=== PATIENT | male | born 1985 | race Asian ===

== ENCOUNTER 2024-08-24 06:01 | Emergency (ER) | payer BC, SELFPAY ==
[2024-08-24 06:03] VITALS: BMI 24.2
--- NOTE | 2024-08-24 06:05 | EKG_ITS ---
[facility] Test Date: 2024-08-24 Pat Name: CORAZON POON Department: Room: - Gender: Male [employer]ist: : 1985 Requested By: ED Temporary Provider Order Number: [id number] Reading MD: ED Temporary Provider Measurements Intervals [place] Rate: 51 P: 74 GA: 172 QRS: 66 QRSD: 88 T: 66 QT: 379 QTc: 352 Interpretive Statements SINUS BRADYCARDIA EARLY REPOLARIZATION [ST ELEVATION WITH NORMALLY INFLECTED T-WAVE] No previous ECG available for comparison /[id number]
[2024-08-24 06:14] VITALS: BP 142/86; PULSE 66; RESP 18; TEMP 36.6; O2SAT 96
--- NOTE | 2024-08-24 06:15 | XR_ITS ---
Examination: PA lateral chest 2 views Technique: Upright PA lateral chest 2 views Exam date:: August 24, 2024 0621 hrs. Indications: Chest pain today Findings: Normal heart size Lungs are clear Thoracic dextroscoliosis Impression: No active disease
--- NOTE | 2024-08-24 06:29 | EDNOTE_ITS ---
ED Chest Pain RME/HPI General Chief Complaint: Chest Pain Stated Complaint: CHEST PAIN Time Seen by Provider: 08/24/24 06:08 Source: patient Arrival date/time: 08/24/24 06:01 38-year-old male with no known medical history presents to the emergency room with a chief complaint of 8 out of 10 sternal chest pain x 2 hours. Mode of arrival: ambulatory Limitations: no limitations Review of Systems Review of Systems Systems Reviewed: All systems reviewed, normal except as documented Constitutional Constitutional: Reports system reviewed and no additional complaints, except as documented, Denies fatigue, Denies fever(s), Denies headache(s) and Denies weakness Eyes Eyes: Reports system reviewed and no additional complaints, except as documented, Denies blurry vision and Denies change in vision ENT Ears, Nose, Mouth, and Throat: Reports system reviewed and no additional complaints, except as documented, Denies otalgia, Denies headache(s), Denies nasal congestion, Denies throat swelling and Denies vertigo Cardiovascular Cardiovascular: Reports system reviewed and no additional complaints, except as documented, Reports chest pain, Reports chest pain at rest, Reports chest pain with activity, Reports dyspnea and Denies dyspnea on exertion Respiratory Respiratory: Reports system reviewed and no additional complaints, except as documented, Denies chest congestion, Denies cough, Reports dyspnea, Denies dyspnea on exertion and Denies wheezing Gastrointestinal Gastrointestinal: Reports system reviewed and no additional complaints, except as documented, Denies abdominal pain, Denies cramping, Denies nausea and Denies vomiting Genitourinary Genitourinary: Reports system reviewed and no additional complaints, except as documented, Denies dysuria and Denies hematuria Musculoskeletal Musculoskeletal: Reports system reviewed and no additional complaints, except as documented and Denies back pain Integumentary/Breasts Skin/Breast: Reports system reviewed and no additional complaints, except as documented and Denies wounds Neurologic Neurologic: Reports system reviewed and no additional complaints, except as documented, Denies confusion, Denies headache(s), Denies lack of coordination, Denies vertigo and Denies weakness Psychiatric Psychiatric: Reports system reviewed and no additional complaints, except as documented, Denies anxiety, Denies confusion, Denies depression, Denies paranoia, Denies suicidal ideation and Denies tactile hallucinations Endocrine Endocrine: Reports system reviewed and no additional complaints, except as documented and Denies fatigue Hematologic/Lymphatic Hematologic/Lymphatic: Reports system reviewed and no additional complaints, except as documented and Denies lymphadenopathy Allergic/Immunologic Allergic/Immunologic: Reports system reviewed and no additional complaints, except as documented, Denies throat swelling, Denies urticaria and Denies wheezing ED Exam General Limitations: Present no limitations General appearance: Present alert and in no apparent distress Head Head exam: Present atraumatic Eye Eye exam: Present normal appearance, PERRL and EOMI ENT ENT exam: Present normal exam, normal oropharynx and mucous membranes moist Neck Neck exam: Present normal inspection, full ROM and trachea midline Chest Chest inspection: Present normal inspection and symmetric chest wall rise; Absent tenderness, rash or abscess Respiratory Respiratory exam: Present normal lung sounds bilaterally; Absent respiratory distress, wheezes, stridor, accessory muscle use or prolonged expiratory phase Cardiovascular Cardiovascular exam: Present regular rate, normal rhythm and normal heart sounds Abdominal Exam Abdominal exam: Present soft and normal bowel sounds Extremities Exam Extremities exam: Present normal inspection and full ROM Back Exam Back exam: Present normal inspection and full ROM Neurological Exam Neurological exam: Present alert, oriented X3 and CN II-XII intact Psychiatric Psychiatric exam: Present normal affect and normal mood Skin Skin exam: Present warm, dry, intact and normal color Course Quality Measures none Orders Category Date Time Status EKG (ED ONLY) *Do not use* NOW Care 08/24/24 06:05 Completed EKG (ED Only) Stat Exams 08/24/24 06:05 Draft XR chest 2V Stat Exams 08/24/24 06:15 Completed B-Type Natriuretic Peptide Stat Lab 08/24/24 06:22 Completed CBC Stat Lab 08/24/24 06:22 Completed Comprehensive Metabolic Panel Stat Lab 08/24/24 06:22 Completed Drug Screen,Urine Stat Lab 08/24/24 06:46 Completed Troponin I Stat Lab 08/24/24 06:22 Completed Urinalysis Stat Lab 08/24/24 06:46 Completed Vital Signs Vital signs: Vital Signs Temperature 97.8 F 08/24/24 06:14 Pulse Rate 66 08/24/24 06:14 Respiratory Rate 18 08/24/24 06:14 Blood Pressure 142/86 H 08/24/24 06:14 Pulse Oximetry (%) 96 08/24/24 06:14 Oxygen Delivery Method Room Air 08/24/24 06:14 O2 saturation 96% within normal limits Procedures -ED EKG Interpretation #1: Date of EK08/24/24 Rate: 51 Interpretation: Reviewed by me Additional EKG comment: EKG shows sinus bradycardia with no ST deviation Chest Pain MDM Narrative MDM Narrative:: 38-year-old male with no known medical history presents to the emergency room with a chief complaint of 8 out of 10 sternal chest pain x 2 hours. Patient is hemodynamically stable. Physical examination shows 8 out of 10 sternal chest pain. The patient has strong and regular pulses. Lung sounds are strong and regular S1 and S2 was noted EKG was completed and shows sinus bradycardia 51 bpm. There is no STEMI or NSTEMI CBC CMP were negative for any acute findings. Troponin was negative. Chest x- ray was negative for any acute findings Patient was discharged and educated to follow-up with primary care provider in the next 24 to 48 hours and return to the emergency room for any evidence of worsening signs or symptoms Patient data External records reviewed:: [facility] previous records Clinical information provided by:: patient Social determinants that could affect healthcare access:: none Patient has the following chronic illnesses:: No chronic illness How is presenting disease/condition affected by chronic disease/condition?: no chronic disease Evaluation data The following diagnostics were reviewed and interpreted by me:: lab results and radiology exam(s) Lab and/or radiology exams considered but not ordered:: Labs and radiology exams considered and ordered Interpretation Summary: Chest [id number]-[id number]: Normal heart size Lungs are clear Thoracic dextroscoliosis Impression: No active disease Medications / Prescriptions Medications or Prescriptions considered but not ordered:: No medication given Medication administrations:: No medication given Consultations Consultation(s) initiated? (list below): No Diagnosis Chest Pain Differential Diagnosis: atypical chest pain, st elevation myocardial infarction, costochondritis and chest pain Most likely diagnosis given after review of the tests above:: Chest pain Admission Indicated Admission indicated?: not indicated Admission Request Was there a request for admission?: No Disposition Plan Disposition Plan: Discharge Discharge Attestation Discharge Attestation: The patient and all family members were given an opportunity to ask questions and understood the discharge instructions. Discharge instructions specifically effects, indications for sooner follow up or return to the emergency department, and the expected course of current diagnosis. Patient condition: Stable Discharge Plan Plan Patient Disposition: HOME (Self Care) Disposition Comment: Stable Prescriptions/Referrals Referrals: No Primary/Family,Physician [Primary Care Provider] - In 1 week Problem List Clinical Impression: Chest pain, non-cardiac, Dextroscoliosis of thoracic spine Patient/Caregiver Discharge Instructions Education Materials: Anatomy of a Normal Spine, ED Chest Pain, Noncardiac Additional Instructions: Please follow-up with your primary care provider in the next 24 to 48 hours. Your blood work was negative for any acute findings. At this time your chest pain is not cardiac related. Your chest x-ray did show some scoliosis in your spine. Please follow-up with your primary care provider. For any evidence of worsening signs or symptoms return to the emergency room immediately Print Language: Zambian Stand Alone Forms: Serena Award Info., Patient Portal Info Letter PA/FREIGHT AND PASSENGER AGENT Supervising Physician PA/[employer]REIGHT AND PASSENGER AGENT Supervising Physician: Dr. Dorado
[2024-08-24 06:42] LABS: Basophils # (Auto) 0.1 Thou/mm3 (0.0-0.2); Basophils % (Auto) 1 % (0-2.5); Eosinophils # (Auto) 0.3 Thou/mm3 (0.0-0.5); Eosinophils % (Auto) 5 % (0-10); Hematocrit 46.8 % (41.0-53.0); Hemoglobin 15.9 g/dL (13.5-16.0); Immature Granulocytes % (Auto) 0 % (0-0); Immature Granulocytes Auto 0.01 Thou/mm3 (0.00-0.00); Lymphocytes # (Auto) 2.4 Thou/mm3 (1.0-4.8); Lymphocytes % (Auto) 36 % (10-50); Mean Corpuscular Hemoglobin 29.3 pg (25.0-35.0); Mean Corpuscular Volume 86 fL (80-100); Monocytes # (Auto) 0.4 Thou/mm3 (0.0-0.8); Monocytes % (Auto) 6 % (0-12); Neutrophils # (Auto) 3.5 Thou/mm3 (1.8-7.7); Neutrophils % (Auto) 52 % (37-80); Nucleated Red Blood Cell % 0 /100 WBC (0); Platelet Count 259 Thou/mm3 (140-440); RDW Standard Deviation 40.3 fL (35.1-43.9); Red Blood Count 5.43 Miln/mm3 (4.50-5.90); White Blood Count 6.8 Thou/mm3 (3.8-10.6)
[2024-08-24 07:05] LABS: B-Type Natriuretic Peptide < 20 pg/mL (0-100)
[2024-08-24 07:06] LABS: Alanine Aminotransferase 267 U/L (10-49); Albumin, Serum 4.4 gm/dL (3.5-5.0); Albumin/Globulin Ratio 1.6 (1.2-2.2); Alkaline Phosphatase 96 U/L (46-116); Anion Gap 7 (7-16); Aspartate Amino Transferase 168 U/L (0-34); BUN/Creatinine Ratio 11 Ratio (12-20); Bilirubin,Total 0.7 mg/dL (0.3-1.2); Blood Urea Nitrogen 12 mg/dL (9-23); Calcium 10.1 mg/dL (8.3-10.6); Calcium (Corrected) 10.1 mg/dL (8.5-10.1); Carbon Dioxide 29.8 mMol/L (20.0-31.0); Chloride 106 mMol/L (98-107); Creatinine (Component) 1.1 mg/dL (0.6-1.3); Estimated Creatinine Clearance 82.2 mL/min (>60); Globulin 2.7 gm/dL (2.3-3.5); Glucose 102 mg/dL (74-106); Osmolality,Calculated 284 (275-295); Potassium 4.4 mMol/L (3.4-5.1); Sodium 143 mMol/L (136-145); Total Protein 7.1 gm/dL (5.7-8.2); Troponin I < 0.020 ng/mL (0.0-0.045); eGFR > 60 See Note
[2024-08-24 07:39] LABS: Collection Type, Urine Clean Catch; Squamous Epithelial Cell,Urine 0 /hpf (0-5)
[2024-08-24 08:04] LABS: Bilirubin,Urine Negative (Negative); Blood,Urine Negative (Negative); Clarity,Urine Clear (Clear/Hazy); Color,Urine Yellow (Lt Yel-Yel); Glucose, Urine Negative (Negative); Ketones,Urine Negative (Negative); Leukocyte Esterase,Urine Negative (Negative); Nitrite,Urine Negative (Negative); Protein,Urine Trace (Neg - Trace); RBC,Urine 2 /hpf (0-3); Specific Gravity,Urine 1.035 (1.001-1.035); WBC,Urine 1 /hpf (0-5)
[2024-08-24 08:11] LABS: Amphetamine/Methamp Scrn,U Negative (Negative); Barbiturate Screen,Urine Negative (Negative); Benzodiazepines Screen,Urine Negative (Negative); Benzoylecgonine Screen, Ur Negative (Negative); Fentanyl Screen,Urine Negative (Negative); Opiate Screen,Urine Negative (Negative); THC Screen,Urine Negative (Negative)
== END 2024-08-24 09:23 | disposition home or self-care (01) ==
PROVIDERS: Nurse Practitioner Family; Emergency Provider Emergency Medicine
DX: R07.89 Other chest pain (principal); M41.84 Other forms of scoliosis, thoracic region; R00.1 Bradycardia, unspecified
CPT/HCPCS: 36415; 71046; 80053; 80307; 81001; 83880; 84484; 85025; 93005; 99283